=== PATIENT | male | born 1945 | race Caucasian/White ===

== ENCOUNTER 2019-10-07 01:04 | Day surgery (SDC) | payer MEDICARE ==
[~2019-10-07 01:04] MED LIST: ASPI81CH PO; CALCIT950; CALCIT950 PO; CHOL10002; CIPR500 PO; FURO40 PO; METO50; Norco 5-325 Ta1 EACH PO; POTCHL20ER PO; Zoladex10.8 MG SC
== END 2019-10-07 23:08 | disposition home or self-care (01) ==
LOC: WOUND 01:04
DX: L97.821 Non-pressure chronic ulcer of other part of left lower leg limited to breakdown of skin (principal); L97.811 Non-pressure chronic ulcer of other part of right lower leg limited to breakdown of skin; I11.0 Hypertensive heart disease with heart failure; I50.30 Unspecified diastolic (congestive) heart failure; I87.2 Venous insufficiency (chronic) (peripheral); Z79.899 Other long term (current) drug therapy; Z79.82 Long term (current) use of aspirin
CPT/HCPCS: G0463

== ENCOUNTER 2019-10-10 09:55 | Day surgery (SDC) | payer MEDICARE | END 2019-10-10 22:40 | disposition home or self-care (01) | LOC: WOUND 09:55 | DX: L97.821 Non-pressure chronic ulcer of other part of left lower leg limited to breakdown of skin (principal); L97.811 Non-pressure chronic ulcer of other part of right lower leg limited to breakdown of skin; I11.0 Hypertensive heart disease with heart failure; I50.30 Unspecified diastolic (congestive) heart failure; I87.2 Venous insufficiency (chronic) (peripheral); Z79.899 Other long term (current) drug therapy; Z79.82 Long term (current) use of aspirin ==

== ENCOUNTER 2019-10-14 00:59 | Day surgery (SDC) | payer MEDICARE | END 2019-10-14 23:00 | disposition home or self-care (01) | LOC: WOUND 00:59 | DX: L97.821 Non-pressure chronic ulcer of other part of left lower leg limited to breakdown of skin (principal); L97.811 Non-pressure chronic ulcer of other part of right lower leg limited to breakdown of skin; I11.0 Hypertensive heart disease with heart failure; I50.30 Unspecified diastolic (congestive) heart failure; I87.2 Venous insufficiency (chronic) (peripheral); Z79.899 Other long term (current) drug therapy; Z79.82 Long term (current) use of aspirin ==

== ENCOUNTER 2019-10-21 01:06 | Day surgery (SDC) | payer MEDICARE | END 2019-10-21 23:20 | disposition home or self-care (01) | LOC: WOUND 01:06 | DX: I87.2 Venous insufficiency (chronic) (peripheral) (principal); L97.821 Non-pressure chronic ulcer of other part of left lower leg limited to breakdown of skin; L97.811 Non-pressure chronic ulcer of other part of right lower leg limited to breakdown of skin; I11.0 Hypertensive heart disease with heart failure; I50.30 Unspecified diastolic (congestive) heart failure; Z79.899 Other long term (current) drug therapy; Z79.82 Long term (current) use of aspirin ==

== ENCOUNTER 2019-10-28 02:25 | Day surgery (SDC) | payer MEDICARE | END 2019-10-28 23:50 | disposition home or self-care (01) | LOC: WOUND 02:25 | DX: I87.2 Venous insufficiency (chronic) (peripheral) (principal); L97.821 Non-pressure chronic ulcer of other part of left lower leg limited to breakdown of skin; L97.811 Non-pressure chronic ulcer of other part of right lower leg limited to breakdown of skin; I11.0 Hypertensive heart disease with heart failure; I50.30 Unspecified diastolic (congestive) heart failure; Z79.899 Other long term (current) drug therapy; Z79.82 Long term (current) use of aspirin ==

== ENCOUNTER 2019-10-31 00:27 | Day surgery (SDC) | payer MEDICARE | END 2019-10-31 23:12 | disposition home or self-care (01) | LOC: WOUND 00:27 | DX: I87.2 Venous insufficiency (chronic) (peripheral) (principal); L97.821 Non-pressure chronic ulcer of other part of left lower leg limited to breakdown of skin; L97.811 Non-pressure chronic ulcer of other part of right lower leg limited to breakdown of skin; I11.0 Hypertensive heart disease with heart failure; I50.30 Unspecified diastolic (congestive) heart failure ==

== ENCOUNTER → 2019-12-20 | Outpatient (CLI) | payer MEDICARE | END | disposition home or self-care (01) | LOC: LAB SHORT 12:45 → LAB 12:45 | DX: L08.0 Pyoderma (principal) | CPT/HCPCS: 87070; 87205 ==

== ENCOUNTER → 2020-07-10 | Outpatient (CLI) | payer MEDICARE | LOC: LAB SHORT 08:04 → PLD 08:04 | DX: L70.0 Acne vulgaris (principal) | CPT/HCPCS: 88305 ==

== ENCOUNTER 2024-08-15 16:37 | Emergency (ER) | payer MEDICARE ==
[~2024-08-15] VITALS: Ht 182.9 cm; Wt 104.3 kg
[~2024-08-15 16:37] MED LIST changes: +CEFD300 PO
[2024-08-15 17:40] VITALS: BP 121/69
[2024-08-15 19:16] LABS: Source, Urine Clean Catch
[2024-08-15 19:24] LABS: Appearance, Urine Hazy (Clear); Bilirubin, Urine Neg (Neg); Blood, Urine 5+ (Neg); Color, Urine Yellow (P-Yellow); Glucose Qualitative, Urine Neg (Neg); Ketones, Urine Neg (Neg); Leukocyte Esterase, Urine 1+ (Neg); Nitrite, Urine Neg (Neg); Protein, Urine 3+ (Neg); Urobilinogen, Urine NORM (Normal)
[2024-08-15 19:31] LABS: Red Blood Cells, Urine 50-100 /hpf (0-2)
[2024-08-15 19:32] LABS: Bacteria Many /hpf; Calcium Oxalate Crystals Few /hpf; Squamous Epithelial Cells Rare /hpf (Few)
== END 2024-08-15 20:06 | disposition home or self-care (01) ==
LOC: ER 16:37
PROVIDERS: Physician Assistant
DX: R31.9 Hematuria, unspecified (principal); I10 Essential (primary) hypertension; Z85.46 Personal history of malignant neoplasm of prostate; Z90.79 Acquired absence of other genital organ(s); Z79.899 Other long term (current) drug therapy; Z79.82 Long term (current) use of aspirin
CPT/HCPCS: 81001; 87086; 99283

== ENCOUNTER 2024-09-07 10:33 | Inpatient (IN) | payer MEDICARE ==
[~2024-09-07] VITALS: Ht 182.9 cm; Wt 98.5 kg
[2024-09-07 11:09] LABS: BASOPHILS ABSOLUTE AUTO 0.01 K/mm3 (0.00-0.23); BASOPHILS PERCENT AUTO 0 % (0-2); EOSINOPHILS PERCENT AUTO 0 % (0-6); Hemoglobin 11.1 g/dL (13.5-17.5); IMMATURE GRAN ABSOLUTE AUTO 0.05 K/mm3 (0.00-0.10); IMMATURE GRAN PERCENT AUTO 1 % (0-1); LYMPHOCYTES ABSOLUTE AUTO 0.37 K/mm3 (0.84-5.20); LYMPHOCYTES PERCENT AUTO 5 % (21-46); MONOCYTES ABSOLUTE AUTO 0.78 K/mm3 (0.16-1.47); MONOCYTES PERCENT AUTO 11 % (4-13); Mean Corpuscular HGB 31.7 pg (26.0-34.0); Mean Corpuscular HGB Conc 33.6 g/dL (31.5-36.5); Mean Corpuscular Volume 94 fL (80-100); Mean Platelet Volume 12.2 fL (9.1-12.4); NEUTROPHILS ABSOLUTE AUTO 5.69 K/mm3 (1.96-9.15); NEUTROPHILS PERCENT AUTO 83 % (41-73); Platelet Count 120 K/mm3 (150-400); RDW Coefficient Variation 13.2 % (11.7-14.2); RDW Standard Deviation 45.1 fL (35.1-46.3)
[2024-09-07 11:37] LABS: Albumin, Blood 2.9 g/dL (3.4-5.0); Albumin/Globulin Ratio 0.7 (0.8-1.8); Bilirubin, Total 1.1 mg/dL (0.1-1.0); Bun/Creatinine Ratio 16.5 (12.0-20.0); Calcium, Blood 10.7 mg/dL (8.5-10.1); Creatinine, Blood 1.39 mg/dL (0.60-1.20); Globulin, Blood 4.2 g/dL (2.2-4.0); Potassium, Blood 3.6 mmol/L (3.5-5.5); Total Protein, Blood 7.1 g/dL (6.4-8.2)
[2024-09-07 13:10] LABS: Influenza A, PCR NEGATIVE (NEGATIVE); Influenza B, PCR NEGATIVE (NEGATIVE); Resp Syncytial Virus, PCR NEGATIVE (NEGATIVE); SARS-Cov-2 (COVID-19) PCR, MMC NEGATIVE (NEGATIVE)
[2024-09-07] MEDS ORDERED: NS 1,000 ML IV SCH ×2 (13:10→17:00)
[2024-09-07 15:02] LABS: Source, Urine Straight Cath
[2024-09-07 15:08] LABS: Appearance, Urine Cloudy (Clear); Bilirubin, Urine Neg (Neg); Blood, Urine 5+ (Neg); Color, Urine Yellow (P-Yellow); Glucose Qualitative, Urine Neg (Neg); Ketones, Urine 3+ (Neg); Leukocyte Esterase, Urine 3+ (Neg); Nitrite, Urine Pos (Neg); Protein, Urine 3+ (Neg); Urobilinogen, Urine NORM (Normal)
[2024-09-07] MEDS ORDERED: Acetaminophen 500 MG Tab PO ONE (15:10)
[2024-09-07 15:19] LABS: Bacteria Many /hpf; Squamous Epithelial Cells Few /hpf (Few)
[2024-09-07] MEDS ORDERED: CefTRIAXone Sodium 1,000 MG in NS 100 ML IV ONE (15:30)
[2024-09-07] MEDS ORDERED: Acetaminophen 650 MG Supp PR ONE (15:35)
[2024-09-07] MEDS ORDERED: Acetaminophen 650 MG Supp PR PRN (16:20)
[2024-09-07] MEDS ORDERED: FLU VACC TS2024-25(6MOS UP)/PF 45 MCG/0.5 ML SYRINGE IM SCH (16:20)
[2024-09-07] MEDS ORDERED: Spironolactone50 MG PO (17:47)
[2024-09-07] MEDS ORDERED: POTA10T PO (17:48)
[2024-09-07] MEDS ORDERED: METO50 PO (18:23)
[2024-09-07 18:27] VITALS: BP 101/49
[2024-09-07 20:10] VITALS: BP 113/66
[2024-09-07] MEDS ORDERED: XTANDI40 M1 PO (21:48)
[2024-09-07 23:00] VITALS: BP 102/60
[2024-09-08 04:00] VITALS: BP 151/64
[2024-09-08] MEDS ORDERED: Acetaminophen 325 MG TABLET PO PRN (04:00)
--- NOTE | 2024-09-08 04:32 | NUR ---
SHIFT SUMMARY. SHIFT HAS BEEN UNREMARKABLE. SHIFT HAS BEEN UNREMARKABLE. EARLY IN SHIFT WHEN COMPLETING ADMISSION ASSESSMENT, PT WAS AOX4 ALTHOUGH VERY SLOW TO RESPOND, RESPONSIVE TO DIRECTION, ABLE TO DRINK WATER WITH ASSISTANCE, ETC. THIS MORNING, PT WAS RUNNING LOW GRADE FEVER OF 100.3. ATTEMPTED TO GIVE PO TYLENOL BUT PT WAS UNRESPONSIVE TO DIRECTION, SOMNOLENT TO THE POINT OF FALLING ASLEEP DURING CONVERSATION, AND WOULD NOT ANSWER ORIENTATION QUESTIONS. WAS UNABLE TO ADMINISTER PO MEDICATIONS AND INSTEAD GAVE SUPPOSITORY TYLENOL. PT HAS CONTINUED TO DENY PAIN THROUGHOUT SHIFT. VITALS HAVE REMAINED STABLE. CONTINUES TO RUN SINUS TACH ON TELE. FLUIDS INFUSING THROUGHOUT SHIFT. PUREWICK IN PLACE D/T INCONTINENCE AT BASELINE AND OUTPUT HAS BEEN CHARTED APPROPRIATELY. Q2 HOUR REPOSITIONS. BED LOCKED IN LOWEST POSITION. CALL LIGHT LEFT WIHTIN REACH. CONTINUING TO MONITOR.
[2024-09-08 04:36] LABS: BASOPHILS ABSOLUTE AUTO 0.01 K/mm3 (0.00-0.23); BASOPHILS PERCENT AUTO 0 % (0-2); EOSINOPHILS PERCENT AUTO 0 % (0-6); Hematocrit 33.7 % (37.0-53.0); Hemoglobin 11.5 g/dL (13.5-17.5); IMMATURE GRAN ABSOLUTE AUTO 0.03 K/mm3 (0.00-0.10); IMMATURE GRAN PERCENT AUTO 1 % (0-1); LYMPHOCYTES ABSOLUTE AUTO 0.47 K/mm3 (0.84-5.20); LYMPHOCYTES PERCENT AUTO 8 % (21-46); MONOCYTES ABSOLUTE AUTO 0.66 K/mm3 (0.16-1.47); MONOCYTES PERCENT AUTO 11 % (4-13); Mean Corpuscular HGB 32.2 pg (26.0-34.0); Mean Corpuscular HGB Conc 34.1 g/dL (31.5-36.5); Mean Corpuscular Volume 94 fL (80-100); Mean Platelet Volume 12.6 fL (9.1-12.4); NEUTROPHILS ABSOLUTE AUTO 4.94 K/mm3 (1.96-9.15); NEUTROPHILS PERCENT AUTO 81 % (41-73); Platelet Count 108 K/mm3 (150-400); RDW Coefficient Variation 13.2 % (11.7-14.2); RDW Standard Deviation 45.6 fL (35.1-46.3); Red Blood Cell Count 3.57 M/mm3 (4.30-5.90); White Blood Cell Count 6.11 K/mm3 (4.00-11.30)
[2024-09-08 05:20] LABS: Albumin, Blood 2.4 g/dL (3.4-5.0); Albumin/Globulin Ratio 0.6 (0.8-1.8); Bilirubin, Total 0.8 mg/dL (0.1-1.0); Bun/Creatinine Ratio 16.9 (12.0-20.0); Calcium, Blood 9.6 mg/dL (8.5-10.1); Creatinine, Blood 1.24 mg/dL (0.60-1.20); Globulin, Blood 4.1 g/dL (2.2-4.0); Potassium, Blood 3.2 mmol/L (3.5-5.5); Total Protein, Blood 6.5 g/dL (6.4-8.2)
--- NOTE | 2024-09-08 06:21 | NUR ---
notified by telegraph dispatcher to some st changes on tele. ekg performed by order of dr. el. pt asymptomatic, vitals stable. notified of ekg results.
[2024-09-08 06:22] VITALS: BP 109/50
[2024-09-08] MEDS ORDERED: Potassium Chl 20MEQ/Water100ML 100 ML IV SCH (08:00)
[2024-09-08 08:24] VITALS: BP 120/52
[2024-09-08] MEDS ORDERED: NS 250 ML IV PRN (09:00)
[2024-09-08] MEDS ORDERED: Enoxaparin 40 MG/0.4 ML SYR SC SCH (09:00)
--- NOTE | 2024-09-08 11:30 | NUR ---
THIS RN ATTEMPTED TO GET PT TO RECLINE CHAIR WITH ASSISTANCE FROM MARINE CARGO SPECIALIST. PT WAS ABLE TO SIT UP TO THE SIDE OF THE BED WITH HELP THEN STATED THAT HE FELT DISORIENTED AND THEN FELL BACK TO A LAYING POSITION. PT WAS SAT BACK UP TO THE SIDE OF THE BED AND. VS WERE TAKEN AND PTS BLOOD PRESSURE WAS 81/49 (60) WHILE SITTING AT THIS SIDE OF THE BED. PT WAS A ASSISTED BACK TO A LAYING POSITION AND VS WERE RETAKEN BLOOD PRESSURE WAS 134/61. PROVIDER WAS NOTIFED AND GAVE A VERBAL ORDER FOR 2 LITERS OF LR AT 200ML/HR. PT IS NOT RESTING IN BED WITH CALL LIGHT IN REACH. BED ALARM ON AND BED IN LOW POSITION.
[2024-09-08] MEDS ORDERED: Lactated Ringer's 1,000 ML IV SCH (11:50)
[2024-09-08] MEDS ORDERED: CefTRIAXone Sodium 1,000 MG in NS 100 ML IV SCH (15:30)
--- NOTE | 2024-09-08 15:43 | NUR ---
SHIFT SUMMERY/ TRANSFER NOTE: REPORT CALLED TO ROOM 336 RN. PT TRANSFERED TO MEDICAL FLOOR VIA HOSP BED BY MANAGER OF CONSTRUCTION. NO NEW CHANGES IN PTS STATUS SINCE 1200 ASSESSMENT. NO SIGNIFICANT EVENTS HAPPENED THIS SHIFT.
[2024-09-08 16:12] VITALS: BP 133/48
--- NOTE | 2024-09-08 16:27 | NUR ---
TRANSFER NOTE PT A PCU TRANSFER AT 1545, REPORT RECEIVED FROM NOEL RIVAS RN. PT ORIENTED TO THE ROOM, CALL LIGHT WITHIN REACH.
--- NOTE | 2024-09-08 17:54 | NUR ---
SHIFT SUMMARY PT AOX4, TRANSFER THIS SHIFT. SLEPT MOST OF THE SHIFT SINCE THE TRANSFER, DOES NOT CALL. REPOSITIONED Q2 SINCE THE TRANSFER, PURWICK IN PLACE. NO COMPLAINTS SINCE THE TRANSFER. CALL LIGHT WITHIN REACH, BED LOCKED AND IN THE LOWEST POSITION. WILL REPORT TO ONCOMING NURSE.
[2024-09-08 20:52] VITALS: BP 152/73
[2024-09-09 02:03] VITALS: BP 156/67
[2024-09-09 05:54] LABS: BASOPHILS ABSOLUTE AUTO 0.01 K/mm3 (0.00-0.23); BASOPHILS PERCENT AUTO 0 % (0-2); EOSINOPHILS ABSOLUTE AUTO 0.02 K/mm3 (0.00-0.68); EOSINOPHILS PERCENT AUTO 0 % (0-6); Hemoglobin 10.1 g/dL (13.5-17.5); IMMATURE GRAN ABSOLUTE AUTO 0.03 K/mm3 (0.00-0.10); IMMATURE GRAN PERCENT AUTO 1 % (0-1); LYMPHOCYTES ABSOLUTE AUTO 0.49 K/mm3 (0.84-5.20); LYMPHOCYTES PERCENT AUTO 11 % (21-46); MONOCYTES ABSOLUTE AUTO 0.49 K/mm3 (0.16-1.47); MONOCYTES PERCENT AUTO 11 % (4-13); Mean Corpuscular HGB 31.7 pg (26.0-34.0); Mean Corpuscular HGB Conc 33.7 g/dL (31.5-36.5); Mean Corpuscular Volume 94 fL (80-100); Mean Platelet Volume 12.5 fL (9.1-12.4); NEUTROPHILS ABSOLUTE AUTO 3.57 K/mm3 (1.96-9.15); NEUTROPHILS PERCENT AUTO 78 % (41-73); Platelet Count 103 K/mm3 (150-400); RDW Coefficient Variation 13.3 % (11.7-14.2); RDW Standard Deviation 45.6 fL (35.1-46.3); Red Blood Cell Count 3.19 M/mm3 (4.30-5.90); White Blood Cell Count 4.61 K/mm3 (4.00-11.30)
--- NOTE | 2024-09-09 06:01 | NUR ---
SHIFT SUMMARY PT DROWSY WITH EYES CLOSED MOST OF THE NIGHT. OX3- UNSURE OF DATE/MONTH. PT DID OPEN EYES AND PARTICIPATED IN CONVERSATION WHEN FRIENDS IN TO VISIT. TOTAL OF 2 LITERS OF LR INFUSED PER ORDER. PT REPOSITIONED THROUGH THE NIGHT. SLEPT LONG INTERVALS. MEPELEX INTACT TO COCCYX. DRESSINGS/COMPRESSION INTACT TO BILAT LEGS. BED IN LOWEST POSITION, SIDE RAILS UP X3, CALL LIGHT WITHIN REACH.
[2024-09-09 06:32] LABS: Bun/Creatinine Ratio 18.4 (12.0-20.0); Calcium, Blood 8.7 mg/dL (8.5-10.1); Creatinine, Blood 0.93 mg/dL (0.60-1.20); Potassium, Blood 2.8 mmol/L (3.5-5.5)
[2024-09-09] MEDS ORDERED: Potassium Chloride 40 MEQ in NS 250 ML IV ONE (07:10)
[2024-09-09 07:31] VITALS: BP 129/57
[2024-09-09] MEDS ORDERED: Potassium Chloride 20 MEQ TabCR PO ONE (08:00)
[2024-09-09] MEDS ORDERED: CefTRIAXone Sodium 2,000 MG in NS 100 ML IV SCH (12:00)
[2024-09-09 17:14] VITALS: BP 121/54
--- NOTE | 2024-09-09 17:23 | NUR ---
SHIFT SUMMARY: PT AOX3 NOT TO SITUATION. PT VERY TIRED AND WEAK. WILL WAKE TO VERBAL STIMULI AND IS COMPLIANT IN CARE. TOLERATING PO MEDS AND IV MEDS WELL. BIOFUELS PRODUCT MANAGER STATES HIS MENTATION IS BASELINE BUT NOT USUALLY SLEEPY. WAS ABLE TO PERFORM BASIC ADLS. STILL CONNECTED TO MALE [employer] [facility] Healthcare[facility] DUE TO INCONTINENCE AND POTENTIAL SKIN BREAK DOWN. PT WILL CALL APPROPRIATELY BUT HAS BEEN SLEEPING MOST OF THE DAY. PT RESTING IN BED, BED IN LOWEST POSITION AND CALL LIGHT IN REACH. CONTINUING CARE.
[2024-09-09] MEDS ORDERED: Thiamine HCl 100 MG Tab PO SCH (19:00)
[2024-09-09 19:47] VITALS: BP 120/51
--- NOTE | 2024-09-09 22:29 | NUR ---
PTS PHOSPHATE CAME BACK AT 1.0 CALLED AND INFORMED HIM AND HE PUT IN A ORDER FOR POTASSIUM PHOSPHATE
[2024-09-09] MEDS ORDERED: Sodium Phosphate 15 MM in Dextrose 5% 500 ML IV SCH (22:30)
[2024-09-09] MEDS ORDERED: Potassium Phosphate Dibasic 15 MM in Dextrose 5% 250 ML IV SCH (23:00)
[2024-09-10 02:28] VITALS: BP 124/57
--- NOTE | 2024-09-10 04:06 | NUR ---
SHIFT SUMMARY PT ALERT ORIENTED X 4 HAS BEEN ALOT MORE AWAKE AND ALERT THIS SHIFT. WE TOOK THE MALE PUREWICK OFF BECAUSE IT KEPT LEAKING. HE ATTEMPTED TO TRY TO USE THE URINAL BUT WAS INCONTINENT. WE PUT A CONDOM CATH ON HIM AND ARE TRYING TO SEE HOW IT WILL WORK. REMAINS ON ROCEPHIN FOR UTI. HIS PHOSPHATE LEVEL LAST NIGHT WAS 1.0. HE WAS GIVEN POTASSIUM PHOSPHATE X 1 BAG. VSS ON RA SATTING AT 96%. NO C/O PAIN THIS SHIFT. RESTING IN BED AT THIS TIME WITH CALL LIGHT IN REACH
[2024-09-10 06:45] LABS: BASOPHILS ABSOLUTE AUTO 0.02 K/mm3 (0.00-0.23); BASOPHILS PERCENT AUTO 1 % (0-2); EOSINOPHILS ABSOLUTE AUTO 0.04 K/mm3 (0.00-0.68); EOSINOPHILS PERCENT AUTO 1 % (0-6); Hematocrit 27.8 % (37.0-53.0); Hemoglobin 9.4 g/dL (13.5-17.5); IMMATURE GRAN ABSOLUTE AUTO 0.03 K/mm3 (0.00-0.10); IMMATURE GRAN PERCENT AUTO 1 % (0-1); LYMPHOCYTES ABSOLUTE AUTO 0.67 K/mm3 (0.84-5.20); LYMPHOCYTES PERCENT AUTO 16 % (21-46); MONOCYTES ABSOLUTE AUTO 0.48 K/mm3 (0.16-1.47); MONOCYTES PERCENT AUTO 12 % (4-13); Mean Corpuscular HGB 31.6 pg (26.0-34.0); Mean Corpuscular HGB Conc 33.8 g/dL (31.5-36.5); Mean Corpuscular Volume 94 fL (80-100); NEUTROPHILS ABSOLUTE AUTO 2.88 K/mm3 (1.96-9.15); NEUTROPHILS PERCENT AUTO 70 % (41-73); Platelet Count 114 K/mm3 (150-400); RDW Coefficient Variation 13.5 % (11.7-14.2); RDW Standard Deviation 46.2 fL (35.1-46.3); Red Blood Cell Count 2.97 M/mm3 (4.30-5.90); White Blood Cell Count 4.12 K/mm3 (4.00-11.30)
[2024-09-10 07:26] LABS: Bun/Creatinine Ratio 17.4 (12.0-20.0); Calcium, Blood 8.9 mg/dL (8.5-10.1); Creatinine, Blood 0.92 mg/dL (0.60-1.20); Magnesium, Blood 2.2 mg/dL (1.6-2.4); Phosphorus, Blood 1.1 mg/dL (2.5-4.9); Potassium, Blood 3.3 mmol/L (3.5-5.5)
[2024-09-10 07:49] VITALS: BP 122/54
[2024-09-10] MEDS ORDERED: Multivitamins/Minerals TAB PO SCH (09:00)
[2024-09-10] MEDS ORDERED: Potassium Phosphate Dibasic 20 MM in Dextrose 5% 500 ML IV STA (13:36)
[2024-09-10 16:17] VITALS: BP 123/63
--- NOTE | 2024-09-10 16:50 | NUR ---
SHIFT SUMMARY: PATIENT A/OX3, SOME CONFUSION AND FORGETFUL AT TIMES, BUT EASILY REDIRECTABLE. PATIENT DENIES CP/PRESSURE, SOB, N/V AND DIZZINESS. PATIENT PARTICIPATED c PT MOBILITY, ABLE TO STOOD UP FOR SHORT PERIOD c PT'S ASSISTANCE. PATIENT STRENGTH SLIGHTLY IMPROVED TODAY. PATIENT MEDICATED X1 c TYLENOL FOR GENERALIZED PAIN c GOOD EFFECT. PATIENT RECEIVED IV ABX/SCHEDULED MEDS PER EMAR. PATIENT APPETITE HAS IMPROVED, CONDOM CATH IN PLACED FOR INCONTINENT VOID, TOLERATING WELL. PATIENT REPOSITIONED AND BLE'S ELEVATED ON PILLOWS T/O SHIFT. VITAL SIGNS REVIEWED. CALL LIGHT IN REACH.
[2024-09-10 19:28] VITALS: BP 135/61
--- NOTE | 2024-09-11 03:57 | NUR ---
SHIFT SUMM: PT IS A PLEASANT 78 YO DNR WHO WAS ADMITTED FOR SEPSIS. 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 LEGS ARE WRAPPED. I CALLED IN PT'S ORDER IN KITCHEN PER HIS REQUEST AND HE HOPES KITCHEN SENDS HIM THE CORRECT GRIS. PT IS BEDREST AND CURRENTLY USING A CONDOM CATH THAT HAS BEEN VERY EFFECTIVE FOR HIS INCONT/RETENTION. BED ALARM SET FOR SAFETY W/FORGETFULNESS. ACCORING TO REPORT PT WILL TRANSFER TO A SNF EVENTUALLY AND DAUGHTER IN LAW HELPS CARE FOR HIM. PT HAS PROSTATE CANCER. PT HAS A FUNNY SENSE OF HUMOR AND ENJOYS JOKING W/STAFF MEMBERS AND MOSTLY IN GOOD SPIRITS. PT ENJOYED SOME JELLO AND TEA TO HELP HIM SLEEP. PT ENJOYS CONVERSATION W/OTHERS AND HAS BEEN PLEASANT. PT USES CALL LIGHT.
[2024-09-11 04:01] VITALS: BP 123/58
[2024-09-11 05:54] LABS: BASOPHILS ABSOLUTE AUTO 0.02 K/mm3 (0.00-0.23); BASOPHILS PERCENT AUTO 1 % (0-2); EOSINOPHILS ABSOLUTE AUTO 0.05 K/mm3 (0.00-0.68); EOSINOPHILS PERCENT AUTO 2 % (0-6); Hematocrit 27.2 % (37.0-53.0); Hemoglobin 9.2 g/dL (13.5-17.5); IMMATURE GRAN ABSOLUTE AUTO 0.02 K/mm3 (0.00-0.10); IMMATURE GRAN PERCENT AUTO 1 % (0-1); LYMPHOCYTES ABSOLUTE AUTO 0.82 K/mm3 (0.84-5.20); LYMPHOCYTES PERCENT AUTO 25 % (21-46); MONOCYTES ABSOLUTE AUTO 0.34 K/mm3 (0.16-1.47); MONOCYTES PERCENT AUTO 10 % (4-13); Mean Corpuscular HGB 31.9 pg (26.0-34.0); Mean Corpuscular HGB Conc 33.8 g/dL (31.5-36.5); Mean Corpuscular Volume 94 fL (80-100); Mean Platelet Volume 11.6 fL (9.1-12.4); NEUTROPHILS ABSOLUTE AUTO 2.08 K/mm3 (1.96-9.15); NEUTROPHILS PERCENT AUTO 63 % (41-73); Platelet Count 126 K/mm3 (150-400); RDW Coefficient Variation 13.6 % (11.7-14.2); RDW Standard Deviation 47.1 fL (35.1-46.3); Red Blood Cell Count 2.88 M/mm3 (4.30-5.90); White Blood Cell Count 3.33 K/mm3 (4.00-11.30)
[2024-09-11 06:16] LABS: Bun/Creatinine Ratio 16.2 (12.0-20.0); Calcium, Blood 8.7 mg/dL (8.5-10.1); Creatinine, Blood 0.86 mg/dL (0.60-1.20); Magnesium, Blood 2.2 mg/dL (1.6-2.4); Phosphorus, Blood 1.5 mg/dL (2.5-4.9); Potassium, Blood 3.2 mmol/L (3.5-5.5)
[2024-09-11 07:29] VITALS: BP 131/62
[2024-09-11] MEDS ORDERED: Potassium Phosphate Dibasic 20 MM in Dextrose 5% 500 ML IV STA (12:31)
[2024-09-11 15:56] VITALS: BP 117/54
--- NOTE | 2024-09-11 16:48 | NUR ---
SHIFT SUMMARY: PATIENT HAS HAD NO NEW ACUTE EVENTS THIS SHIFT. PATIENT DENIES CP/PRESSURE, SOB, N/V AND DIZZINESS. PATIENT REPORTS TO THIS RN THAT HE IS REFUSING SNF RECOMMENDATION AND " I MIGHT CONSIDER" HHS. DR. MARTE IS AWARE OF THIS ISSUE. PATIENT HAS MOD APPETITE, CONDOM CATH IN PLACED FOR INCONTINENT VOID, TOLERATING WELL. PATIENT USES BSC c 2 MAX ASSIST GAITBELT/FWW. PATIENT HAD MED SOFT BM THIS SHIFT. DRESSING CHANGED TO BLE'S. PATIENT RECEIVED OT DOSE IV K PHOS PER ORDER. PATIENT SCD'S IN PLACED TO BLE'S, TOLERATING WELL. PATIENT REPOSITIONED AND BLE'S ELEVATED ON PILLOWS. PATIENT RECEIVED SCHEDULED MEDS PER EMAR. VITAL SIGNS REVIEWED. CALL LIGHT IN REACH.
[2024-09-11] MEDS ORDERED: Potassium Chloride 10 Meq Tablet SA PO SCH (17:00)
[2024-09-11 19:58] VITALS: BP 138/59
[2024-09-11] MEDS ORDERED: Metoprolol Tartrate 50 MG Tab PO SCH (21:00)
[2024-09-12 02:11] VITALS: BP 143/70
--- NOTE | 2024-09-12 03:37 | NUR ---
A&OX3, VSS, DENIED PAIN THIS SHIFT, PT NOT SLEEPING WELL, EXPRESSED FRUSTRATION WITH BEING IN THE HOSP AND THAT HE IS "TIRED OF BEING IN BED", SLEPT INTERMITTENTLY THIS SHIFT, CALL LIGHT IN REACH, BED ALARM ACTIVE, WILL CONT TO MONITOR UNTIL REPORT GIVEN TO ONCOMING NURSE.
[2024-09-12 05:38] LABS: BASOPHILS ABSOLUTE AUTO 0.01 K/mm3 (0.00-0.23); BASOPHILS PERCENT AUTO 0 % (0-2); EOSINOPHILS ABSOLUTE AUTO 0.05 K/mm3 (0.00-0.68); EOSINOPHILS PERCENT AUTO 1 % (0-6); Hematocrit 28.8 % (37.0-53.0); Hemoglobin 9.5 g/dL (13.5-17.5); IMMATURE GRAN ABSOLUTE AUTO 0.06 K/mm3 (0.00-0.10); IMMATURE GRAN PERCENT AUTO 2 % (0-1); LYMPHOCYTES ABSOLUTE AUTO 1.02 K/mm3 (0.84-5.20); LYMPHOCYTES PERCENT AUTO 27 % (21-46); MONOCYTES ABSOLUTE AUTO 0.42 K/mm3 (0.16-1.47); MONOCYTES PERCENT AUTO 11 % (4-13); Mean Corpuscular HGB 31.4 pg (26.0-34.0); Mean Corpuscular Volume 95 fL (80-100); Mean Platelet Volume 11.2 fL (9.1-12.4); NEUTROPHILS ABSOLUTE AUTO 2.23 K/mm3 (1.96-9.15); NEUTROPHILS PERCENT AUTO 59 % (41-73); Platelet Count 145 K/mm3 (150-400); RDW Coefficient Variation 13.7 % (11.7-14.2); RDW Standard Deviation 47.7 fL (35.1-46.3); Red Blood Cell Count 3.03 M/mm3 (4.30-5.90); White Blood Cell Count 3.79 K/mm3 (4.00-11.30)
[2024-09-12 06:16] LABS: Bun/Creatinine Ratio 15.5 (12.0-20.0); Calcium, Blood 8.4 mg/dL (8.5-10.1); Creatinine, Blood 0.78 mg/dL (0.60-1.20); Phosphorus, Blood 1.5 mg/dL (2.5-4.9); Potassium, Blood 3.3 mmol/L (3.5-5.5)
[2024-09-12 07:29] VITALS: BP 133/63
[2024-09-12] MEDS ORDERED: XTANDI 40 MG PO SCH (09:00)
[2024-09-12] MEDS ORDERED: Furosemide 40 MG Tab PO SCH (09:00)
[2024-09-12] MEDS ORDERED: Spironolactone 50 MG Tab PO SCH (09:00)
[2024-09-12] MEDS ORDERED: ACET325 PO (15:00)
[2024-09-12] MEDS ORDERED: SULFAMETHOXAZO1 EAC1 PO (15:01)
[2024-09-12 15:16] VITALS: BP 118/63
--- NOTE | 2024-09-12 15:37 | NUR ---
DISCHARGE DELAYED DUE TO TELECOMMUNICATIONS CABLE JOINTER BEING OUT OF STATE. TELECOMMUNICATIONS CABLE JOINTER WILL BE BACK 09/13 AFTER 1400. TIP SCOURER NOTIFIED. DR. BLACKWELL NOTIFIED. PER , START BACTRIM DS PO BID TONIGHT. IV ACCESS LOST.
--- NOTE | 2024-09-12 17:01 | NUR ---
PT DISCHARGE PAPERWORK COMPLETE. NOT FINALIZED. PO BACTRIM DS STARTED TONIGHT IV ACCESS LOST, AWARE. PT IS POLITE, CALLS APPROPRIATELY, PT BOILER OR ENGINE OPERATOR CURRENTLY OUT OF STATE AND PLANS TO GIS PROGRAMMER PT AFTER 1400 TOMORROW. BOILER OR ENGINE OPERATOR EXPRESSED CONCERN FOR CURRENT MEDICAL STATUS AND ABILITY TO CARE FOR PT IN THE HOME. INFORMED BOILER OR ENGINE OPERATOR, CHELI, THAT SNF WAS RECOMMENDED AND PT DECLINED, HOME HEALTH ORDERS HAVE BEEN PLACED. BOILER OR ENGINE OPERATOR PLANS TO DISCUSS THIS WITH PT TOMORROW. BOILER OR ENGINE OPERATOR CONCERNED THAT PT DOES NOT CLEARLY UNDERSTAND HOW HOME HEALTH WORKS AND MAY BE DECLINING BECAUSE HE IS WORRIED A STRANGER WILL BE MOVING IN WITH HIM. THIS RN WITH DISCUSS ANY CONCERNS WTIH CHELI AND PT BEFORE DISCHARGE TOMORROW. PT IS ALERT AND ORIENTED X4, DOES NOT CARE FOR HOSPITAL FOOD OPTIONS, DECLINED BREAKFAST AND LUNCH THIS SHIFT. OFFERED FOOD FROM [employer], PT ATE FROZEN MEAL 100%. BLE WRAPPED WITH MARVIN BANDAGE. 1 PERSON ASSIST TO BATHROOM WITH FWW AND GAIT BELT, PER NOC RN, THIS HAS IMPROVED SINCE YESTERDAY.
[2024-09-12 19:25] VITALS: BP 120/59
[2024-09-12] MEDS ORDERED: Trimethoprim/Sulfamethoxazole DS Tab PO SCH (21:00)
[2024-09-13 02:21] VITALS: BP 108/55
--- NOTE | 2024-09-13 04:44 | NUR ---
A&OX4, VSS, DENIED PAIN, SLEPT MOST OF SHIFT WAKING FOR A LATE SNACK THEN RETURNING TO SLEEP, PURWICK PLACED FOR THE NIGHT AT PTS RE, APPEARS TO BE SLEEPING AT THIS TIME, CALL LIGHT IN REACH, BED ALARM ACTIVE, WILL CONT TO MONITOR UNTIL REPORT GIVEN TO ONCOMING NURSE.
[2024-09-13 07:38] VITALS: BP 133/64
--- NOTE | 2024-09-13 16:34 | NUR ---
PT DISCHARGED HOME, DISCHARGE INSTRUCTIONS DISCUSSED WITH CARE GIVERS AND PT. NO QUESTIONS OR CONCERNS AT DISCHARGE
== END 2024-09-13 16:30 | disposition home health service (06) | DRG 871 ==
LOC: ER 10:33 → MEDS 16:18 → PCU 16:18 → MEDS 09-08 15:39
PROVIDERS: Emergency Medicine; Hospitalist; Student in an Organized Health Care Education/Training Program; ADMIT Internal Medicine
DX: A41.9 Sepsis, unspecified organism (principal); G92.8 Other toxic encephalopathy; N39.0 Urinary tract infection, site not specified; N17.9 Acute kidney failure, unspecified; F05 Delirium due to known physiological condition; R65.20 Severe sepsis without septic shock; E83.39 Other disorders of phosphorus metabolism; E87.6 Hypokalemia; R31.9 Hematuria, unspecified; D63.8 Anemia in other chronic diseases classified elsewhere; Z85.46 Personal history of malignant neoplasm of prostate; I10 Essential (primary) hypertension; Z66 Do not resuscitate; Z90.79 Acquired absence of other genital organ(s); R33.9 Retention of urine, unspecified; Z98.890 Other specified postprocedural states; F17.210 Nicotine dependence, cigarettes, uncomplicated; Z79.82 Long term (current) use of aspirin; Z79.899 Other long term (current) drug therapy; Z79.891 Long term (current) use of opiate analgesic; B96.4 Proteus (mirabilis) (morganii) as the cause of diseases classified elsewhere
CPT/HCPCS: 0241U; 36415; 70450; 71045; 72125; 74178; 80048; 80053; 81001; 82550; 83605; 83735; 84100; 84145; 85025; 87040; 87077; 87086; 87186; 93005; 93010; 94762; 96360; 97110; 97110-CQ; 97161; 97530; 97530-CQ; 99285-25; A9270; J0696; J1650; J3480; J7030; J7050; J7060; J7120; Q9967

== ENCOUNTER 2025-05-04 14:26 | Emergency (ER) | payer MEDICARE ==
[~2025-05-04] VITALS: Ht 177.8 cm; Wt 117.9 kg
[~2025-05-04 14:26] MED LIST changes: +ACET325 PO; +METO50 PO; +POTA10T PO; +SULFAMETHOXAZO1 EAC1 PO; +Spironolactone50 MG PO; +XTANDI40 M1 PO
[2025-05-04 14:55] VITALS: BP 126/71
[2025-05-04] MEDS ORDERED: CEPH500 PO (15:03)
[2025-05-04] MEDS ORDERED: Lasix20 MG PO (15:03)
== END 2025-05-04 15:07 | disposition home or self-care (01) ==
LOC: ER 14:26
DX: L03.115 Cellulitis of right lower limb (principal); L03.116 Cellulitis of left lower limb; I10 Essential (primary) hypertension; E11.9 Type 2 diabetes mellitus without complications; F17.290 Nicotine dependence, other tobacco product, uncomplicated; Z79.899 Other long term (current) drug therapy
CPT/HCPCS: 99282